=== PATIENT | male | born 1975 | race American Indian/Alaskan Native ===

== ENCOUNTER 2017-07-18 15:36 | Emergency (ER) | payer SELFPAY ==
[2017-07-18 17:11] LABS: Hematocrit 45.2 % (35.5-45.6); Hemoglobin 14.9 gm/dl (11.8-15.2); Mean Corpuscular HGB Conc 33 % (32-34); Mean Corpuscular Hemoglobin 30 pg (28-32); Mean Corpuscular Volume 90 fl (84-94); Red Blood Count 5.03 M/mm3 (3.65-5.03)
[2017-07-18 17:16] LABS: BUN/Creatinine Ratio 14; Blood Urea Nitrogen 15 mg/dL (9-20); Calcium 9.1 mg/dL (8.4-10.2); Hemolysis Index 10
[2017-07-18 17:23] LABS: Platelet Count 210 K/mm3 (140-440)
[2017-07-18 17:29] LABS: Partial Thromboplastin Time 27.5 Sec. (24.2-36.6)
--- NOTE | 2017-07-18 19:47 | Emergency Department Report ---
ED General Adult HPI - General Chief complaint: Extremity Injury, Lower Stated complaint: RIGHT LEG PAIN/HX DVT Time Seen by Provider: 07/18/17 19:26 Source: patient Mode of arrival: Ambulatory Limitations: No Limitations - History of Present Illness Initial comments: Patient is a 42-year-old male no significant past medical history who presents with hand blisters and foot blisters have been going on for last week. Patient states pain is a 6 on a 10 nothing makes it better standing on his feet makes the pain worse. She denies having any nausea or vomiting he denies having any fever or having any blood exposure. Patient denies any headaches. He also states that he has some right thigh pain he states the back pain sustained pain he's had when he had a blood clot before in the past. He states that he's been off his blood thinner since February and has had some swelling to the leg. - Related Data Previous Rx's Medication Instructions Recorded Last Taken Type Acetaminophen [Tylenol Extra 500 mg PO Q6H #30 tablet 07/18/17 Unknown Rx Strength] Diclofenac Sodium [Voltaren] 100 gm TP Q6H #1 gel..gram. 07/18/17 Unknown Rx Allergies Allergy/AdvReac Type Severity Reaction Status Date / Time No Known Allergies Allergy Unverified 07/18/17 16:08 ED Review of Systems ROS: Stated complaint: RIGHT LEG PAIN/HX DVT Other details as noted in HPI Constitutional: denies: chills, fever Eyes: denies: eye pain, eye discharge, vision change ENT: denies: ear pain, throat pain Respiratory: denies: cough, shortness of breath, wheezing Cardiovascular: denies: chest pain, palpitations Endocrine: no symptoms reported Gastrointestinal: denies: abdominal pain, nausea, diarrhea Genitourinary: denies: urgency, dysuria Musculoskeletal: as per HPI. denies: back pain, joint swelling, arthralgia Skin: denies: rash, lesions Neurological: denies: headache, weakness, paresthesias Psychiatric: denies: anxiety, depression Hematological/Lymphatic: denies: easy bleeding, easy bruising ED Past Medical Hx - Past Medical History Previous Medical History?: Yes Hx Deep Vein Thrombosis: Yes (left leg) - Surgical History Past Surgical History?: Yes Additional Surgical History: surgery to help remove DVT - Social History Smoking Status: Never Smoker Substance Use Type: None - Medications Home Medications: Home Medications Medication Instructions Recorded Confirmed Last Taken Type Acetaminophen [Tylenol Extra 500 mg PO Q6H #30 tablet 07/18/17 Unknown Rx Strength] Diclofenac Sodium [Voltaren] 100 gm TP Q6H #1 gel..gram. 07/18/17 Unknown Rx ED Physical Exam - General Limitations: No Limitations General appearance: alert, in no apparent distress - Head Head exam: Present: atraumatic, normocephalic - Eye Eye exam: Present: normal appearance - ENT ENT exam: Present: mucous membranes moist - Neck Neck exam: Present: normal inspection - Respiratory Respiratory exam: Present: normal lung sounds bilaterally. Absent: respiratory distress - Cardiovascular Cardiovascular Exam: Present: regular rate, normal rhythm. Absent: systolic murmur, diastolic murmur, rubs, gallop - GI/Abdominal GI/Abdominal exam: Present: soft, normal bowel sounds - Rectal Rectal exam: Present: deferred - Extremities Exam Extremities exam: Present: other (blisters on arms and soles of foot ) - Back Exam Back exam: Present: normal inspection - Neurological Exam Neurological exam: Present: alert, oriented X3 - Psychiatric Psychiatric exam: Present: normal affect, normal mood - Skin Skin exam: Present: warm, dry, intact, normal color. Absent: rash ED Course Vital Signs 07/18/17 16:08 Temperature 98.5 F Pulse Rate 95 H Respiratory 16 Rate Blood Pressure 120/75 O2 Sat by Pulse 94 Oximetry ED Medical Decision Making - Lab Data Result diagrams: 07/18/17 16:25 07/18/17 16:25 Lab Results 07/18/17 07/18/17 07/18/17 Range/Units 16:25 16:25 16:25 WBC 13.5 H (4.5-11.0) K/mm3 RBC 5.03 (3.65-5.03) M/mm3 Hgb 14.9 (11.8-15.2) gm/dl Hct 45.2 (35.5-45.6) % MCV 90 (84-94) fl MCH 30 (28-32) pg MCHC 33 (32-34) % RDW 15.0 (13.2-15.2) % Plt Count 210 (140-440) K/mm3 PT 13.7 (12.2-14.9) Sec. INR 1.00 (0.87-1.13) APTT 27.5 (24.2-36.6) Sec. Sodium 138 (137-145) mmol/L Potassium 4.0 (3.6-5.0) mmol/L Chloride 99.8 (98-107) mmol/L Carbon Dioxide 24 (22-30) mmol/L Anion Gap 18 mmol/L BUN 15 (9-20) mg/dL Creatinine 1.1 (0.8-1.5) mg/dL Estimated GFR > 60 ml/min BUN/Creatinine Ratio 14 % Glucose 108 H (75-100) mg/dL Calcium 9.1 (8.4-10.2) mg/dL - Radiology Data Radiology results: report reviewed Dopplar ultrasound: shows no evidence of DVT - Medical Decision Making Cdx: Deep venous thrombosis Ddx: Electrolyte abnormality, Hand foot and mouth disease I will get a Doppler ultrasound, blood work and oral pain medication Patient's blood work and Doppler ultrasound were unremarkable I will send patient home with Tylenol and Voltaren cream. Discussed outpatient patient received plan additional verbal discharge instructions were given. Critical care attestation.: If time is entered above; I have spent that time in minutes in the direct care of this critically ill patient, excluding procedure time. ED Disposition Clinical Impression: Blisters of multiple sites, Right leg pain Disposition: DC-01 TO HOME OR SELFCARE Is pt being admited?: No Does the pt Need Aspirin: No Condition: Stable Instructions: Hand, Foot, and Mouth Disease (ED) Prescriptions: Acetaminophen [Tylenol Extra Strength] 500 mg PO Q6H #30 tablet Diclofenac Sodium [Voltaren] 100 gm TP Q6H #1 gel..gram. Referrals: RENZO VALERIO MD [Staff Physician] - 3-5 Days
[2017-07-18 20:01] VITALS: BP 113/69
== END 2017-07-18 20:01 | disposition home or self-care (01) ==
LOC: ED 15:36
DX: S40.822A Blister (nonthermal) of left upper arm, initial encounter (principal); S40.821A Blister (nonthermal) of right upper arm, initial encounter; S90.822A Blister (nonthermal), left foot, initial encounter; S90.821A Blister (nonthermal), right foot, initial encounter; M79.604 Pain in right leg; X58.XXXA Exposure to other specified factors, initial encounter; Y93.89 Activity, other specified; Y92.89 Other specified places as the place of occurrence of the external cause; Y99.8 Other external cause status; Z86.718 Personal history of other venous thrombosis and embolism
CPT/HCPCS: 36415; 80048; 85027; 85610; 85730